=== PATIENT | female | born 1975 | race Caucasian/White ===

== ENCOUNTER 2018-02-02 00:16 | Day surgery (SDC) | payer OTHER ==
[2018-02-02] MEDS ORDERED: NS 0.9% 1000 ML* 1,000 ML IV ONE (00:40)
--- NOTE | 2018-02-02 00:45 | ED ---
Abdominal Pain/Female - HPI Summary HPI Summary: A 42 y/o female presents to [facility] with a chief complaint of RLQ abdominal pain. She claims that her pain has been intermittent since 01/28/18, but since the night of 02/01/18 her pain worsened and was constant. She claims that the night of 02/01/18 her pain started when she was sitting down watching TV. She rates her current pain as 8/10. She also c/o N/V. She denies fever or hematuria. She also denies an abdominal surgical history stating that she still has her appendix and gallbladder. She denies a Hx of kidney stones. She has had a partial hysterectomy in 2014. 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 - History of Current Complaint Chief Complaint: EDAbdPain Stated Complaint: ABD PAIN Time Seen by Provider: 02/02/18 00:26 Hx Obtained From: Patient Onset/Duration: Sudden Onset, Lasting Days, Still Present Timing: Constant Severity Initially: Severe Severity Currently: Severe Pain Intensity: 8 Pain Scale Used: 0-10 Numeric Location: Discrete At: RLQ Radiates: No Aggravating Factor(s): Nothing Alleviating Factor(s): Nothing Associated Signs and Symptoms: Positive: Other: - Negative: hematuria. Negative : Fever Allergies/Adverse Reactions: Allergies Allergy/AdvReac Type Severity Reaction Status Date / Time No Known Allergies Allergy Verified 02/02/18 00:19 Home Medications: Home Medications ZOLMitriptan [Zomig] 5 mg PO DAILY PRN 02/02/18 [History Confirmed 02/02/18] PMH/Surg Hx/FS Hx/Imm Hx Endocrine/Hematology History: Denies: Hx Diabetes Cardiovascular History: Denies: Hx Coronary Artery Disease, Hx Hypertension History: Denies: Hx Kidney Stones - Surgical History Surgery Procedure, Year, and Place: partial hysterectomy 2014 Infectious Disease History: No Infectious Disease History: Denies: Traveled Outside the [place] in Last 30 Days - Family History Known Family History: Positive: Diabetes Negative: Cardiac Disease, Hypertension - Social History Alcohol Use: None Substance Use Type: Reports: None Smoking Status (MU): Never Smoked Tobacco Review of Systems Negative: Fever Positive: Abdominal Pain, Vomiting, Nausea Negative: hematuria All Other Systems Reviewed And Are Negative: Yes Physical Exam - Summary Physical Exam Summary: Appearance: Well appearing, no pain distress Skin: warm, dry, reflects adequate perfusion Head/face: normal Eyes: EOMI, STEPHANIA ENT: normal Neck: supple, non-tender Respiratory: CTA, breath sounds present Cardiovascular: RRR, pulses symmetrical Abdomen: Tenderness RLQ Musculoskeletal: normal, strength/ROM intact Neuro: normal, sensory motor intact, A&Ox3 Triage Information Reviewed: Yes Vital Signs On Initial Exam: Initial Vitals Temp Pulse Resp BP Pulse Ox 97.1 F 63 20 146/85 99 02/02/18 00:18 02/02/18 00:18 02/02/18 00:18 02/02/18 00:18 02/02/18 00:18 Vital Signs Reviewed: Yes Diagnostics - Vital Signs Vital Signs Temp Pulse Resp BP Pulse Ox 02/02/18 00:18 97.1 F 63 20 146/85 99 - Laboratory Result Diagrams: 02/02/18 01:01 02/02/18 01:01 Lab Statement: Any lab studies that have been ordered have been reviewed, and results considered in the medical decision making process. - CT abdomen/pelvis CT Interpretation Completed By: Radiologist Summary of CT Findings: 1. 8 cm cyst located in the central pelvis. Suggest ultrasound correlation to. exclude ovarian torsion. Small amount of fluid is seen in the pelvis. 2. The appendix is not visualized. Consider repeating the CT scan with oral. contrast waiting for the contrast to reach the ascending colon. 3. Multiple focal hypodensities located in the spleen which become less. conspicuous over time. These may represent hemangiomas. ED physician has reviewed this imaging report. - Ultrasound No standard instances Ultrasound Interpretation Completed By: Radiologist Summary of Ultrasound Findings: Transvaginal US impression: Complex cyst located in the pelvis. This cyst have multiple septations with low. level echoes. This could represent a hemorrhagic cyst. Blood flow is seen in. margins of this lesion. Suggest followup ultrasound in 3 months. ED physician has reviewed this imaging report. Re-Evaluation - Re-Evaluation First Eval Re-Evaluation Time: 04:25 Change: Unchanged Comment: Discussed with the patient plan for an US. Second Eval Re-Evaluation Time: 06:20 Change: Unchanged Comment: Patient still reports abdominal pain Abdominal Pain Fem Course/Dx - Course Course Of Treatment: A 42 y/o female presents to [facility] with a chief complaint of RLQ abdominal pain. She claims that her pain has been intermittent since , but since the night of 02/01/18 her pain worsened and was constant. She claims that the night of 02/01/18 her pain started when she was sitting down watching TV. She rates her current pain as 8/10. She also c/o N/V. She denies fever or hematuria. She also denies an abdominal surgical history stating that she still has her appendix and gallbladder. She denies a Hx of kidney stones. In the ED course the patient was given morphine, zofran and sodium chloride IV. Lab results obtained. CT abdomen/pelvis impression:1. 8 cm cyst located in the central pelvis. Suggest ultrasound correlation to. exclude ovarian torsion. Small amount of fluid is seen in the pelvis. 2. The appendix is not visualized. Consider repeating the CT scan with oral. contrast waiting for the contrast to reach the ascending colon. 3. Multiple focal hypodensities located in the spleen which become less. conspicuous over time. These may represent hemangiomas. Transvaginal US impression: Complex cyst located in the pelvis. This cyst have multiple septations with low. level echoes. This could represent a hemorrhagic cyst. Blood flow is seen in. margins of this lesion. Suggest followup ultrasound in 3 months. After discussing the case with Dr. Crowley he recommended calling a ABNORMAL PSYCHOLOGY TEACHER. After discussing the case with Dr. Turner , he will see the patient in the ED. The patient will be signed out to Dr. Soto at shift change pending ABNORMAL PSYCHOLOGY TEACHER consult. Dx: abdominal pain, ovarian cyst. - Diagnoses Differential Diagnosis: Positive: Appendicitis, Diverticulitis, Ovarian Cyst, Renal Colic, Urinary Tract Infection Provider Diagnoses: Abdominal pain, Ovarian cyst - Provider Notifications Discussed Care Of Patient With: Jatin Crowley Time Discussed With Above Provider: 06:25 Instructed by Provider To: Other - Suggested discussing the case with ABNORMAL PSYCHOLOGY TEACHER. Discharge - Sign-Out/Discharge Documenting (check all that apply): Sign-Out Patient Signing out patient TO: Rafael Soto - pending ABNORMAL PSYCHOLOGY TEACHER consult - Discharge Plan Condition: Stable Referrals: No Primary Care Phys,NOPCP [Primary Care Provider] - - Billing Disposition and Condition Condition: STABLE - Attestation Statements Document Initiated by Scribe: Yes Documenting Scribe: Govind Zamorano Provider For Whom Scribe is Documenting (Include Credential): Dony Cevallos MD Scribe Attestation: I, Govind Zamorano, scribed for Dony Cevallos MD on 02/02/18 at 0646. Scribe Documentation Reviewed: Yes Provider Attestation: The documentation as recorded by the Govind thomas accurately reflects the service I personally performed and the decisions made by me, Dony Cevallos MD Status of Scribe Document: Viewed Consult Consult: At 06:40 - Discussed case with Dr. Turner, ABNORMAL PSYCHOLOGY TEACHER, who will see the patient in the ED.
[2018-02-02] MEDS ORDERED: Ondansetron INJ* 2 MG/ML VIAL ONE ×2 (00:50→10:22)
[2018-02-02] MEDS ORDERED: Morphine VIAL* 4 MG/ML VIAL (1 ml vial) ONE ×2 (00:51→02:08)
[2018-02-02] MEDS: Morphine VIAL* 4 MG/ML VIAL (1 ml vial) IV ONE ×2 (00:58→02:11)
[2018-02-02] MEDS ORDERED: Ondansetron INJ* 2 MG/ML VIAL IV ONE (01:01)
[2018-02-02 01:15] LABS: ABS Basophils 0 10^3/ul (0-0.2); ABS Eosinophils 0.2 10^3/ul (0-0.6); ABS Lymphocytes 1.4 10^3/ul (1.0-4.8); ABS Monocytes 0.5 10^3/ul (0-0.8); ABS Neutrophils 2.7 10^3/ul (1.5-7.7); ABS Nucleated RBC 0 10^3/ul; Eosinophil % 3.4 %; Hematocrit 37 % (35-47); Hemoglobin 12.9 g/dl (12.0-16.0); Lymphocyte % 29.8 %; Mean Corpuscular HGB Conc 34 g/dl (31-36); Mean Corpuscular Hemoglobin 30 pg (27-31); Mean Corpuscular Volume 87 fL (80-97); Mean Platelet Volume 7.7 fL (7.4-10.4); Nucleated Red Blood Cells % 0.1; Platelet Count 202 10^3/ul (150-450); Red Blood Count 4.31 10^6/ul (4.00-5.40); Red Cell Distribution Width 13 % (10.5-15); White Blood Count 4.8 10^3/ul (3.5-10.8)
[2018-02-02 01:25] LABS: Activated Partial Thrombo Time 30.4 seconds (26.0-36.3); INR 0.89 (0.77-1.02)
[2018-02-02 01:26] LABS: Urine Appearance Cloudy; Urine Bacteria Absent (Absent); Urine Bilirubin Negative (Negative); Urine Blood 1+ (Negative); Urine Color Yellow; Urine Glucose Negative (Negative); Urine Ketones Trace (Negative); Urine Nitrite Negative (Negative); Urine Protein 1+(30 mg/dL) (Negative); Urine Red Blood Cell 2+(6-10/hpf) (Absent); Urine Specific Gravity 1.039 (1.010-1.030); Urine Urobilinogen Negative (Negative); Urine White Blood Cell Trace(0-5/hpf) (Absent)
[2018-02-02 01:33] LABS: ALT 12 U/L (7-52); AST 12 U/L (13-39); Albumin/Globulin Ratio 1.6 (1-3); Alkaline Phosphatase 60 U/L (34-104); Anion Gap 5 mmol/L (2-11); BUN/Creatinine Ratio 23.1 (8-20); Blood Urea Nitrogen 18 mg/dL (6-24); CO2 Carbon Dioxide 22 mmol/L (22-32); Chloride 110 mmol/L (101-111); EGFR Non-African American 81.8 (>60); Globulin 2.5 g/dL (2-4); Glucose 107 mg/dL (70-100); Potassium 3.9 mmol/L (3.5-5.0); Sodium 137 mmol/L (135-145); Total Protein 6.5 g/dL (6.4-8.9)
[2018-02-02 01:39] LABS: HCG Pregnancy < 0.60 mIU/mL
[2018-02-02] MEDS ORDERED: Morphine VIAL* 4 MG/ML VIAL (1 ml vial) IV ONE (02:11)
[2018-02-02] MEDS ORDERED: Iohexol 300* (CONTRAST) 10 ML SDV IV ONE (02:44)
[2018-02-02] MEDS ORDERED: HYDROmorphone INJ* 2 MG/ML CARPUJECT SYRINGE IV SLOW PU ONE (04:26)
[2018-02-02] MEDS ORDERED: HYDROmorphone INJ1* 1 MG/ML SYRINGE ONE ×2 (04:32→07:49)
[2018-02-02] MEDS: HYDROmorphone INJ1* 1 MG/ML SYRINGE IV SLOW PU ONE ×2 (04:35→07:50)
--- NOTE | 2018-02-02 07:14 | ED ---
Progress - Progress Note Progress Note: A 42 y/o female presents to [facility] with a chief complaint of RLQ abdominal pain. She claims that her pain has been intermittent since 01/28/18, but since the night of 02/01/18 her pain worsened and was constant. She claims that the night of 02/01/18 her pain started when she was sitting down watching TV. She rates her current pain as 8/10. She also c/o N/V. She denies fever or hematuria. She also denies an abdominal surgical history stating that she still has her appendix and gallbladder. She denies a Hx of kidney stones. She has had a partial hysterectomy in 2014. 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 Patient was signed out from Dr. Cevallos to Dr. Soto during a shift change, pending a MENTAL TESTER consult. Patient was seen by COMMERCIAL COORDINATOR Dr. Turner. He will plan to take her to the operating room this morning. Patient is NPO for surgery. Course/Dx - Course Course Of Treatment: A 42 y/o female presents to [facility] with a chief complaint of RLQ abdominal pain. She claims that her pain has been intermittent since , but since the night of 02/01/18 her pain worsened and was constant. She claims that the night of 02/01/18 her pain started when she was sitting down watching TV. She rates her current pain as 8/10. She also c/o N/V. She denies fever or hematuria. She also denies an abdominal surgical history stating that she still has her appendix and gallbladder. She denies a Hx of kidney stones. In the ED course the patient was given morphine, zofran and sodium chloride IV. Lab results obtained. CT abdomen/pelvis impression:1. 8 cm cyst located in the central pelvis. Suggest ultrasound correlation to. exclude ovarian torsion. Small amount of fluid is seen in the pelvis. 2. The appendix is not visualized. Consider repeating the CT scan with oral. contrast waiting for the contrast to reach the ascending colon. 3. Multiple focal hypodensities located in the spleen which become less. conspicuous over time. These may represent hemangiomas. Transvaginal US impression: Complex cyst located in the pelvis. This cyst have multiple septations with low. level echoes. This could represent a hemorrhagic cyst. Blood flow is seen in. margins of this lesion. Suggest followup ultrasound in 3 months. After discussing the case with Dr. Crowley he recommended calling a MENTAL TESTER. After discussing the case with Dr. Turner , he will see the patient in the ED. The patient will be signed out to Dr. Soto at shift change pending MENTAL TESTER consult. Dx: abdominal pain, ovarian cyst. Nurse's note reviewed. - Diagnoses Provider Diagnoses: Ovarian cyst, Pelvic pain - Provider Notifications Discussed Care Of Patient With: Steve Turner - MENTAL TESTER Time Discussed With Above Provider: 08:00 Instructed by Provider To: Other - Dr. Turner will admit her for surgery Discharge - Sign-Out/Discharge Documenting (check all that apply): Patient Departure, Receiving Sign-Out Receiving patient FROM: Dony Cevallos - Pending a MENTAL TESTER consult - Discharge Plan Condition: Stable Disposition: ADMITTED TO [facility] Referrals: No Primary Care Phys,NOPCP [Primary Care Provider] - - Billing Disposition and Condition Condition: STABLE Disposition: Admitted to [facility] - Attestation Statements Document Initiated by Efe: Yes Documenting Scribe: Og Mora Provider For Whom Scribe is Documenting (Include Credential): Rafael Soto MD Scribe Attestation: Og Garcia, scribed for Rafael Soto MD on 02/02/18 at 0842. Scribe Documentation Reviewed: Yes Provider Attestation: The documentation as recorded by the Og thomas accurately reflects the service I personally performed and the decisions made by me, Rafael Soto MD Status of Scribe Document: Viewed
[2018-02-02] MEDS ORDERED: ceFOXitin 2 GM IVPREMIX* 2 GM/50 ML BAG ONE (09:03)
[2018-02-02] MEDS ORDERED: Rocuronium* 10 MG/ML VIAL ONE (09:33)
[2018-02-02] MEDS ORDERED: fentaNYL* 50 MCG/ML 2 ML VIAL (100 MCG VIAL) ONE (09:33)
[2018-02-02] MEDS ORDERED: Midazolam* 1 MG/ML 2 ML VIAL (2 MG) ONE (09:33)
[2018-02-02] MEDS ORDERED: Bupivacaine 0.5% W/EPI SDV* 30 ML VIAL ONE (09:51)
[2018-02-02] MEDS ORDERED: EPHEDrine (Pressors)* 50 MG/ML VIAL ONE (10:14)
[2018-02-02] MEDS ORDERED: Dexamethasone IV* 4 MG/ML 1 ML (4 MG) ONE (10:22)
[2018-02-02] MEDS ORDERED: Ketorolac INJ* 30 MG/ML 1 ML VIAL ONE (10:22)
[2018-02-02] MEDS ORDERED: Propofol* 10 MG/ML 20 ML BTL ONE (10:22)
[2018-02-02] MEDS ORDERED: Succinylcholine* 20 MG/ML 10 ML VIAL ONE (10:22)
[2018-02-02] MEDS ORDERED: Famotidine IV* 10 MG/ML 2 ML (20 mg) ONE (10:22)
[2018-02-02] MEDS ORDERED: Naloxone* 0.4 MG/ML 1 ML VIAL IV PRN (11:13)
[2018-02-02] MEDS ORDERED: DiMENhydriNATE IV* 50 MG/ML VIAL IV PUSH PRN (11:13)
[2018-02-02] MEDS ORDERED: fentaNYL* 50 MCG/ML 2 ML VIAL (100 MCG VIAL) IV PRN (11:13)
[2018-02-02 12:05] VITALS: BP 149/94
--- NOTE | 2018-02-16 17:03 | OP ---
OPERATIVE REPORT: DATE OF OPERATION: 02/02/18 DATE OF : 79 SURGEON: Dr. Turner. HORN PLAYER: Dr. Rios ANESTHESIA: General anesthetic with endotracheal intubation. PRE-OP DIAGNOSES: 1. Acute abdomen and pelvic pain. 2. Right adnexal complex mass. POST-OP DIAGNOSIS: Right ovarian torsion. OPERATIVE PROCEDURE: Laparoscopic right oophorectomy. ESTIMATED BLOOD LOSS: None. SPECIMEN SENT TO PATHOLOGY: Right ovary. FLUIDS: The patient received 1 liter of IV crystalloid fluid. URINE OUTPUT: 600 mL of clear urine. FINDINGS: Laparoscopically, the patient was noted to have a normal left ovary. Uterus and bilateral tubes were missing due to prior hysterectomy and salpingectomy. She had an enlarged, dark purple, to rsed ovary which was also inflamed at infundibulopelvic pelvic ligament. The bile, appendix, and ede er edge were all within normal limits. There were no complications during this procedure. DESCRIPTION OF PROCEDURE: The patient was taken to the operating room where she was identified. Radha mendez was placed on the operating table where a general anesthetic with endotracheal intubation was obtai jovanna without difficulty. She was placed in dorsal lithotomy position, prepped and draped in a normal sterile fashion. Attention was then brought onto the patient's peritoneum where the bladder was shaheen terized and drained of clear urine using a Pettit catheter. Attention was then brought onto the patie nt's abdomen where a infraumbilical skin incision was made with a knife and carried through to the un derlying layer of fascia. The fascia was then grasped with Julia clamps, brought up to the incision , and incised vertically with a knife and then entry through the peritoneum and into the abdomen was confirmed using a Sara clamp. The Julia clamps were then replaced with 0 Polysorb sutures and thro ugh this incision, a GelPort single-site laparoscopic port was introduced and the port was then attac hed to insufflation and the patient's abdomen was then insufflated with CO2 gas. Three trocars were introduced through the single-site port. The camera was then used to identify the patient's pelvic a natomy. We then proceeded with right oophorectomy. First the right ovary torsion was reduced. The ovary remained inflamed and enlarged. The infundibulopelvic ligament was identified at the site of t he surgery and it was grasped with a LigaSure wilder, coagulated and then incised. We then pr oceeded to place the right torsed ovary into an Endobag. This was removed through the umbilicus and sent to pathology. A second look laparoscopically revealed no bleeding and hemostatic pedicle on the right infundibulopelvic ligament. At this point, I proceeded to remove all the instruments from the patient's abdomen. The CO2 gas was also removed through the umbilical incision. The umbilical inci elmer to fascia was then closed with 0 Polysorb suture in a running fashion and the skin was closed w ith 4-0 Monocryl subcuticular stitch. Pettit catheter was removed. The patient tolerated the proced ure well. Sponge, lap, and needle counts were correct x2. She was then transferred to recovery room area in stable condition. [id number]/[facility] #: [id number]
== END 2018-02-02 07:45 | disposition home or self-care (01) ==
LOC: ED 00:16 → OR 07:45 → ED 08:56 → OR 02-04 10:54
PROVIDERS: ATTEND Obstetrics & Gynecology
DX: N83.511 Torsion of right ovary and ovarian pedicle (principal); N83.11 Corpus luteum cyst of right ovary; R10.31 Right lower quadrant pain; N94.9 Unspecified condition associated with female genital organs and menstrual cycle; R11.2 Nausea with vomiting, unspecified; J30.89 Other allergic rhinitis; G43.909 Migraine, unspecified, not intractable, without status migrainosus
CPT/HCPCS: 36415; 74177; 76830; 80053; 81003; 81015; 83690; 84702; 85025; 85610; 85730; 87086; 88305; 99283; J0330; J0694; J1100; J1170; J1885; J2250; J2270; J2405; J2704; J3010; Q9967